=== PATIENT | female | born 1960 | race African-American/Black ===

== ENCOUNTER 2016-06-07 02:34 | Emergency (ER) | payer SELFPAY ==
[~2016-06-07] VITALS: Ht 162.6 cm; Wt 113.4 kg
[2016-06-07 03:30] LABS: DEFINITIVE VIEW TRANSMISSION; Hematocrit 37.8 % (36.0-46.0); Hemoglobin 11.7 g/dL (12.2-16.2); Mean Corpuscular Hemoglobin 25.4 pg (28.0-32.0); Mean Corpuscular Hgb Conc. 30.9 g/dL (32.0-36.0); Mean Corpuscular Volume 82.4 fL (80.0-100.0); Mean Platelet Volume 9.9 fL (7.4-10.4); Platelet Count (auto) 197 10^3/uL (140-450); Red Cell Distribution Width 14.6 % (11.6-16.0); SUSPECT VIEW TRANSMISSION; White Blood Cell 4.3 10^3/uL (4.4-10.8)
[2016-06-07 03:56] LABS: Metamyelocytes % 0; Myelocytes % 0; Promyelocytes % 0; Reactive Lymphocytes 0
[2016-06-07 04:06] LABS: Anisocytosis Slight; Ovalocytes FEW; Platelet Estimate Adequate
[2016-06-07] MEDS ORDERED: ONDANSETRON HCL 4 MG/2 ML VIAL IV ONE (04:15)
[2016-06-07 04:22] LABS: Albumin 3.5 g/dL (3.4-5.0); Calcium 9.7 mg/dL (8.5-10.1); Potassium 3.8 mmol/L (3.5-5.1)
[2016-06-07 04:25] LABS: BUN/Creatinine Ratio 10.1
[2016-06-07 04:27] LABS: B-Type Natriuretic Peptide 3.7 pg/mL (0-100); Bilirubin, Total 0.2 mg/dL (0.2-1.0); Total Protein 8.6 g/dL (6.4-8.2)
[2016-06-07 05:09] LABS: Temperature: 22.7 C (20.0-25.0)
[2016-06-07 08:13] VITALS: BP 144/80
[2016-06-07 08:47] LABS: Urine Bilirubin Negative (Negative); Urine Blood Negative /uL (Negative); Urine Color Yellow (Yellow); Urine Glucose Normal (Normal); Urine Ketone Negative (Negative); Urine Nitrite Negative (Negative); Urine RBC 1 /hpf (0 - 4); Urine Squamous Epithelial Cell FEW /hpf (<5); Urine Urobilinogen Normal (Negative); Urine pH 7.5 (5.0-8.0)
== END 2016-06-07 11:37 | disposition home or self-care (01) ==
LOC: ER 02:38 → EDBD 02:38 → ER 11:35
DX: R10.13 Epigastric pain (principal); T50.905A Adverse effect of unspecified drugs, medicaments and biological substances, initial encounter; M54.5 Low back pain; D50.9 Iron deficiency anemia, unspecified; I10 Essential (primary) hypertension; G89.29 Other chronic pain; E11.8 Type 2 diabetes mellitus with unspecified complications; Y93.89 Activity, other specified; Y99.9 Unspecified external cause status; Y92.89 Other specified places as the place of occurrence of the external cause
CPT/HCPCS: 36415; 71010; 80053; 81001; 83690; 83880; 84484; 85007; 85027; 93005; 96374; 99285; G0434; J2405